=== PATIENT | male | born 1985 | race Caucasian/White ===

== ENCOUNTER 2017-07-13 19:32 | Emergency (ER) | payer OTHER ==
[2017-07-13 19:39] VITALS: TEMP 98.1; O2SAT 95
[2017-07-13] MEDS ORDERED: TDAP ADULT 0.5 ML INJ (BOOSTRIX) IM ONE (20:45)
--- NOTE | 2017-07-13 20:55 | EDPHY ---
H & P HPI/ROS: Chief complaint: Left hand laceration History of present illness: This is a 31-year-old male who presents to the emergency department for evaluation of a laceration to the palm of his left hand. He cut it with a pair of scissors just prior to arrival. Minimal pain. Trouble controlling bleeding as it continues to open up as he moves the hand. No report of abnormal coolness in the hand. No difficulty moving the hand. No other injuries. He does not believe his tetanus is up-to-date. Smoking Status: Never smoked Physical Exam: General: Alert, nontoxic Skin: 0.5 cm laceration to the medial aspect of the left palm. No evidence of foreign body or deep structure injury. Musculoskeletal: Patient is moving all joints in all digits in all reyes without difficulty in the rest in all reyes without difficulty. Vascular: Radial pulse 2 +. Capillary refill brisk in all digits of the left hand. Neurologic: Light touch sensation intact throughout the left hand Constitutional: Initial Vital Signs Temperature (C) 36.7 C 07/13/17 19:36 Heart Rate 90 07/13/17 19:36 Respiratory Rate 16 07/13/17 19:36 Blood Pressure 140/91 H 07/13/17 19:36 O2 Sat (%) 95 07/13/17 19:36 O2 Delivery Mode Room Air Allergies/Adverse Reactions: No Known Allergies Allergy (Unverified 07/13/17 19:39) Home Medications: Medication Instructions Recorded Lexapro 07/13/17 clonAZEPAM [KLONOPIN] 07/13/17 MDM/Departure - MDM Procedures: Procedure: Laceration repair. Verbal consent was obtained from the patient. The 0.5 cm laceration on the left hand was anesthetized in the usual fashion. The wound was irrigated, draped and explored to its base with a gloved finger. There were no deep structures involved. No tendon injury was identified. The wound was repaired with 5 0 Prolene, 2 simple interrupted sutures. The wound repair was simple. The procedure was performed by myself. Medications Given: Discontinued Medications Diphtheria/Tetanus/Acell Pertussis (Boostrix) 0.5 ml IM .ONCE ONE Stop: 07/13/17 20:46 Last Admin: 07/13/17 21:09 Dose: 0.5 ml ED Course/Re-evaluation: Patient seen under the supervision of my secondary supervising physician Dr. Lawrence Cervantes. Patient presents to the emergency department for a left hand laceration. The hand is neurovascularly intact. He has good musculoskeletal control. No evidence of foreign bodies on examination. Wound is cleaned, repaired and dressed. His tetanus is updated. Home care is discussed. Follow up with a primary care doctor for recheck. Return precautions are given. Patient voiced understanding and agreement with plan. - Depart Disposition: Home, Routine, Self-Care Clinical Impression: Laceration of hand Qualifiers: Encounter type: initial encounter Foreign body presence: without foreign body Laterality: left Qualified Code(s): S61.412A - Laceration without foreign body of left hand, initial encounter Condition: Good Instructions: Care For Your Stitches (ED), Laceration (ED), Acute Wounds (ED) Additional Instructions: Follow-up with your primary care doctor this week for recheck without fail Stitches to be removed in 7 days If symptoms worsen or new symptoms develop return to the emergency room for recheck Referrals: NONE *PRIMARY CARE P,. [Primary Care Provider] - As per Instructions Jadiel Madrid DO [Doctor of Osteopathy] - As per Instructions [facility],. [Clinic] - As per Instructions
[2017-07-13 21:25] VITALS: BP 136/90; PULSE 91; RESP 18
== END 2017-07-13 21:25 | disposition home or self-care (01) ==
PROC: 0HQGXZZ Repair Left Hand Skin, External Approach (ICD-10-PCS; principal; 2017-07-13)
DX: S61.412A Laceration without foreign body of left hand, initial encounter (principal); Z23 Encounter for immunization; W27.2XXA Contact with scissors, initial encounter